=== PATIENT | female | born 1940 | race Caucasian/White ===

== ENCOUNTER 2017-09-18 13:10 | Emergency (ER) | payer MEDICARE, OTHER ==
[2017-09-18 13:21] VITALS: BP 139/73
--- NOTE | 2017-09-18 13:25 | UC ---
Abdominal Pain Female HPI - HPI Summary HPI Summary: Pt presents with 5-6 weeks of intermittent diarrhea. Starting around that time she noticed that she would eat a meal and then within 1 hour will have generalized stomach cramps and have to "run to the bathroom" - has an episode or two of diarrhea and her symptoms are relieved. This happens once or twice a week. She says that this happened years ago when she had Dr. Guzmán as a PCP and he would give her a pill to take during these instances and this would improve things. She tells me that she has a hx of breast cancer, left nephrectomy, cholecystectomy, and adrenal cancer. Sees Dr. Miller for oncology and undergoes chemo every 3 weeks - has been stable with this for years. Denies fever, chills, SOB, chest pain, vomiting, dysuria, or blood in stool. - History of Current Complaint Chief Complaint: UCAbdominalPain Stated Complaint: ABD COMPLAINT Time Seen by Provider: 09/18/17 13:24 Hx Obtained From: Patient Onset/Duration: Gradual Onset Severity Initially: Moderate Severity Currently: None Pain Intensity: 7 Pain Scale Used: 0-10 Numeric Allergies/Adverse Reactions: Allergies Allergy/AdvReac Type Severity Reaction Status Date / Time losartan Allergy Intermediate Hives Verified 09/18/17 13:21 penicillin V Allergy Unknown Hives Verified 09/18/17 13:21 bupropion Allergy Anxiety Verified 09/18/17 13:21 cephalexin Allergy Unknown Verified 09/18/17 13:21 Reaction Details hydrochlorothiazide Allergy Rash Verified 09/18/17 13:21 latex Allergy Blisters Verified 09/18/17 13:21 lisinopril Allergy Rash Verified 09/18/17 13:21 PMH/Surg Hx/FS Hx/Imm Hx Endocrine History: Thyroid Disease Cardiovascular History: Hypertension GI/ History: Gastroesophageal Reflux Cancer History: Breast Cancer, Other Other Cancer History: Adrenal - Surgical History Surgical History: Yes Surgery Procedure, Year, and Place: left kidney and adrenal cancer, currently on meds for it - Family History Known Family History: Positive: Unknown - Social History Occupation: Retired Lives: Alone Alcohol Use: None Substance Use Type: None Smoking Status (MU): Never Smoked Tobacco - Immunization History Most Recent Influenza Vaccination: not flu season Most Recent Tetanus Shot: UTD Most Recent Pneumonia Vaccination: has had in past Review of Systems Constitutional: Negative Respiratory: Negative Cardiovascular: Negative Gastrointestinal: Diarrhea Genitourinary: Negative Motor: Negative Neurovascular: Negative Neurological: Negative Psychological: Negative All Other Systems Reviewed And Are Negative: Yes Physical Exam - Summary Physical Exam Summary: GENERAL: NAD. WDWN. No pain distress. SKIN: No rashes, sores, ulcers, masses, lesions. NECK: Supple. Nontender. No lymphadenopathy. CHEST: CTAB. No r/r/w. No accessory muscle use. Breathing comfortably and in no distress. CV: RRR. Without m/r/g. Pulses intact. Brisk cap refill. ABDOMEN: Soft. NTTP. No distention or guarding. No organomegaly. Bowel sounds present x4. NEURO: Alert. CN II-XII grossly intact. PSYCH: Age appropriate behavior. Triage Information Reviewed: Yes Vital Signs: Initial Vital Signs Temp 98.3 F 09/18/17 13:18 Pulse 59 09/18/17 13:18 Resp 18 09/18/17 13:18 BP 139/73 09/18/17 13:18 Pulse Ox 98 09/18/17 13:18 Abd Pain Female Course/Dx - Course Course Of Treatment: I had a long discussion with the pt and discussed potential evaluation options consistening of imaging, stool cultures, and labwork - but all of these methods are currently unavailable at today. She is afebrile and asymptomatic at this time. We discussed trying Align as a probiotic to help alleviate her symptoms and have her follow up with her PCP within 1 week for further investigation. Go to ED if symptoms worsen. She was agreeable to this plan. - Differential Dx/Diagnosis Provider Diagnoses: Intermittent diarrhea Discharge - Sign-Out/Discharge Documenting (check all that apply): Discharge - Discharge Plan Condition: Stable Disposition: HOME Prescriptions: Bifidobacterium Infantis [Align] 4 mg PO DAILY #30 capsule Patient Education Materials: Chronic Diarrhea (ED) Referrals: Vish Mei MD [Primary Care Provider] - Additional Instructions: If you develop a fever, shortness of breath, chest pain, new or worsening symptoms - please call your PCP or go to the ED. Your blood pressure was high at todays visit. Please see your primary provider within 4 weeks for recheck and re-evaluation. 1) Please call your PCP to discuss further evaluation and treatment of your intermittent diarrhea. 2) Please try taking Align once a day for at least two weeks to see if this helps your stomach. Continue your other medications as prescribed. - Billing Disposition and Condition Condition: STABLE Disposition: HOME
== END 2017-09-18 13:54 | disposition home or self-care (01) ==
LOC: UCEAST 13:10
DX: R19.7 Diarrhea, unspecified (principal); Z88.0 Allergy status to penicillin; Z88.8 Allergy status to other drugs, medicaments and biological substances; Z88.3 Allergy status to other anti-infective agents
CPT/HCPCS: 99212; G0463

== ENCOUNTER 2021-11-23 10:59 | Inpatient (IN) ==
[2021-11-23 11:32] LABS: ABS Eosinophils 0.1 10^3/ul (0-0.6); ABS Lymphocytes 1.5 10^3/ul (1.0-4.8); ABS Monocytes 0.1 10^3/ul (0-0.8); ABS Neutrophils 7.4 10^3/ul (1.5-7.7); Eosinophil % 1.5 %; Hematocrit 43 % (35-47); Hemoglobin 14.5 g/dL (12.0-16.0); Lymphocyte % 16.7 %; Mean Corpuscular HGB Conc 34 g/dL (31-36); Mean Corpuscular Hemoglobin 32 pg (27-31); Mean Corpuscular Volume 96 fL (80-97); Mean Platelet Volume 7.7 fL (7.4-10.4); Platelet Count 185 10^3/uL (150-450); Red Blood Count 4.49 10^6 /uL (3.70-4.87); Red Cell Distribution Width 13 % (10-15); White Blood Count 9.2 10^3/uL (3.5-10.8)
[2021-11-23 11:42] LABS: Calcium 9.3 mg/dL (8.6-10.3); Potassium 4.3 mmol/L (3.5-5.0); Total Bilirubin 0.8 mg/dL (0.2-1.0)
[2021-11-23 11:48] LABS: Albumin/Globulin Ratio 1.3 (1-3); eGFR CKD-EPI 30.6 (>60)
[2021-11-23] MEDS ORDERED: Ondansetron 4 mg VIAL 2 MG/ML 2 ml VIAL ONE (12:10)
[2021-11-23] MEDS ORDERED: Dexamethasone IV 4 MG/ML VIAL 1 ml VIAL ONE (12:10)
[2021-11-23 15:25] LABS: Potassium 4.4 mmol/L (3.5-5.0)
[2021-11-23] MEDS: Scopolamine 1 mg/72hr PATCH TRANSDERM SCH (17:55)
[2021-11-23] MEDS: NS 0.9% 1000 ml BAG 1,000 ML IV SCH (17:55)
[2021-11-24] MEDS: NS 0.9% 1000 ml BAG 1,000 ML IV SCH ×3 (04:33→15:33)
[2021-11-24 06:49] LABS: ABS Lymphocytes 0.9 10^3/ul (1.0-4.8); ABS Monocytes 0.1 10^3/ul (0-0.8); ABS Neutrophils 4.9 10^3/ul (1.5-7.7); Eosinophil % 0.2 %; Hematocrit 37 % (35-47); Hemoglobin 12.9 g/dL (12.0-16.0); Lymphocyte % 14.8 %; Mean Corpuscular HGB Conc 35 g/dL (31-36); Mean Corpuscular Hemoglobin 33 pg (27-31); Mean Corpuscular Volume 95 fL (80-97); Platelet Count 128 10^3/uL (150-450); Red Blood Count 3.89 10^6 /uL (3.70-4.87); Red Cell Distribution Width 13 % (10-15); White Blood Count 5.9 10^3/uL (3.5-10.8)
[2021-11-24 07:23] LABS: Albumin 3.4 g/dL (3.2-5.2); Albumin/Globulin Ratio 1.5 (1-3); Calcium 8.1 mg/dL (8.6-10.3); Globulin 2.3 g/dL (2-4); Potassium 4.7 mmol/L (3.5-5.0); Total Bilirubin 0.6 mg/dL (0.2-1.0); Total Protein 5.7 g/dL (6.4-8.9); eGFR CKD-EPI 44.4 (>60)
[2021-11-24] MEDS: DESVENLAFAXINE 25 MG PO SCH (11:31)
[2021-11-25] MEDS: NS 0.9% 1000 ml BAG 1,000 ML IV SCH ×2 (04:59→17:32)
[2021-11-25] MEDS: DESVENLAFAXINE 25 MG PO SCH (09:05)
[2021-11-25 12:21] LABS: Albumin 3.3 g/dL (3.2-5.2); Calcium 8.5 mg/dL (8.6-10.3); Potassium 4.2 mmol/L (3.5-5.0); Total Bilirubin 0.7 mg/dL (0.2-1.0)
[2021-11-25 12:27] LABS: Albumin/Globulin Ratio 1.5 (1-3); Globulin 2.2 g/dL (2-4); Total Protein 5.5 g/dL (6.4-8.9); eGFR CKD-EPI 53.1 (>60)
[2021-11-25] MEDS: Ondansetron 4 mg VIAL 2 MG/ML 2 ml VIAL IV PRN (19:36)
[2021-11-26] MEDS: Ondansetron 4 mg VIAL 2 MG/ML 2 ml VIAL IV PRN ×2 (05:52→14:28)
[2021-11-26] MEDS: NS 0.9% 1000 ml BAG 1,000 ML IV SCH (06:16)
[2021-11-26 07:43] LABS: Albumin 3.4 g/dL (3.2-5.2); Albumin/Globulin Ratio 1.5 (1-3); Calcium 8.3 mg/dL (8.6-10.3); Globulin 2.2 g/dL (2-4); Potassium 4.5 mmol/L (3.5-5.0); Total Bilirubin 0.8 mg/dL (0.2-1.0); Total Protein 5.6 g/dL (6.4-8.9); eGFR CKD-EPI 53.7 (>60)
[2021-11-26] MEDS: DESVENLAFAXINE 25 MG PO SCH (09:21)
[2021-11-26] MEDS: Scopolamine 1 mg/72hr PATCH TRANSDERM SCH (12:49)
[2021-11-27] MEDS: DESVENLAFAXINE 25 MG PO SCH (08:14)
[2021-11-27 12:55] VITALS: BP 108/58
== END 2021-11-27 15:15 | disposition home or self-care (01) | DRG 598 ==
LOC: CHOA 10:59 → MED 17:23
PROVIDERS: ADMIT Internal Medicine Hematology & Oncology; ATTEND Internal Medicine Medical Oncology